=== PATIENT | male | born 1980 | race Caucasian/White ===

== ENCOUNTER 2021-05-12 14:54 | Emergency (ER) | payer OTHER, SELFPAY ==
[2021-05-12] MEDS ORDERED: ONDANSETRON 4 MG (ODT) TAB ONE (16:13)
[2021-05-12] MEDS ORDERED: BENZONATATE 100 MG CAP PO ONE (16:13)
--- NOTE | 2021-05-12 18:14 | EDPHYS ---
Physician Documentation [facility] Name: Bishop Velasquez Age: 40 yrs Sex: Male : 1980 Arrival Date: 05/12/2021 Time: 14:57 Bed 23 Private MD: ED Physician Brian Lilly HPI: 05/12 15:45 This 40 yrs old Male presents to ER via Ambulatory with complaints of cp Abdominal Pain, Cough. 15:45 The patient presents with diarrhea with episode today and 3 episodes yesterday. Patient cp denies abdominal pain at this time. 15:45 The patient or guardian reports cough, that is intermittent, with productive sputum, cp that is green, reports nausea with cough. Onset: The symptoms/episode began/occurred 2 day(s) ago. Associated signs and symptoms: Pertinent positives: diarrhea, sore throat, Pertinent negatives: chest pain, fever, vomiting. Historical: - Allergies: 15:24 No Known Allergies; tw2 - Home Meds: 15:24 None [Active]; tw2 - PMHx: 15:24 Bipolar disorder; tw2 - PSHx: 15:24 None; tw2 - Immunization history:: Client reports having NOT received the Covid vaccine. - Social history:: Smoking status: Patient reports the use of cigarette tobacco products, smokes one pack cigarettes per day. Patient uses street drugs, marijuana, "occasionally". ROS: 15:50 Constitutional: Negative for body aches, chills, fever, poor PO intake. cp 15:50 Eyes: Negative for injury, pain, redness, and discharge. cp 15:50 ENT: Negative for ear pain, difficulty swallowing, difficulty handling secretions. 15:50 Cardiovascular: Negative for chest pain. 15:50 Respiratory: Positive for cough, Negative for shortness of breath, wheezing. 15:50 Abdomen/GI: Positive for diarrhea, Negative for abdominal pain, vomiting, constipation, black/tarry stool, rectal bleeding. 15:50 Skin: Negative for rash. 15:50 Neuro: Negative for altered mental status, headache. 15:50 All other systems are negative. Exam: 15:52 Constitutional: The patient appears in no acute distress, alert, awake, comfortable, cp non-toxic, well developed, well nourished. 15:52 Head/Face: Normocephalic, atraumatic. cp 15:52 Eyes: Periorbital structures: appear normal, Conjunctiva: normal, no exudate, no injection, Sclera: no appreciated abnormality, Lids and lashes: appear normal, bilaterally. 15:52 ENT: External ear(s): are unremarkable, Nose: is normal, Mouth: Lips: moist, Oral mucosa: pink and intact, moist, Posterior pharynx: Airway: no evidence of obstruction, patent, Tonsils: no enlargement, no exudate, Uvula: midline, erythema, is not appreciated, exudate, is not appreciated. 15:52 Neck: ROM/movement: is normal, is supple, without pain, no range of motions limitations, no meningismus. 15:52 Chest/axilla: Inspection: normal, Palpation: is normal, no crepitus, no tenderness. 15:52 Cardiovascular: Rate: normal, Rhythm: regular. 15:52 Respiratory: the patient does not display signs of respiratory distress, Respirations: normal, no use of accessory muscles, no retractions, labored breathing, is not present, Breath sounds: are clear throughout, no decreased breath sounds, no stridor, no wheezing. 15:52 Abdomen/GI: Inspection: abdomen appears normal, Palpation: abdomen is soft and non-tender, in all quadrants. Vital Signs: 15:21 BP 139 / 91; Pulse 77; Resp 17; Temp 97.4; Pulse Ox 99% on R/A; Weight 81.65 kg (R); tw2 Height 6 ft. 2 in. (187.96 cm); 15:51 Weight 81.65 kg; Height 6 ft. 2 in. (187.96 cm); Pain 0/10; jw6 15:52 BP 134 / 78; Pulse 72; Resp 18; Pulse Ox 100% on R/A; jw6 15:51 Body Mass Index 23.11 (81.65 kg, 187.96 cm) jw6 MDM: 15:38 Patient medically screened. cp 18:13 Antibiotic administration: Not indicated, the patient has a suspected viral illness. cp 18:13 Data reviewed: vital signs, nurses notes, lab test result(s), and as a result, I will cp discharge patient. Counseling: I had a detailed discussion with the patient and/or guardian regarding: the historical points, exam findings, and any diagnostic results supporting the discharge/admit diagnosis, lab results, to return to the emergency department if symptoms worsen or persist or if there are any questions or concerns that arise at home. 05/12 15:38 Order name: COVID-19 (Coronavirus) Document "Date of Onset" if Symptomatic cp 05/12 15:38 Order name: Influenza Screen (a \\T\\ B) cp 05/12 15:45 Order name: Strep cp 05/12 16:48 Order name: Group A Streptococcus Rapid Sc; Complete Time: 17:13 EDMS 05/12 17:13 Interpretation: Reviewed. cp 05/12 16:51 Order name: CORONAVIRUS EDMS 05/12 16:53 Order name: Influenza Screen (A EDMS 05/12 17:55 Order name: SARS-COV-2 RT PCR; Complete Time: 18:09 EDMS 05/12 18:26 Order name: Throat Culture EDMS Administered Medications: 15:49 Drug: Tessalon Perle (benzonatate) 200 mg Route: PO; jw6 15:49 Follow up: Response: No adverse reaction jw6 15:49 Drug: Zofran (Ondansetron) 4 mg Route: PO; jw6 15:49 Follow up: Response: No adverse reaction jw6 Disposition Summary: 05/12/21 18:14 Discharge Ordered Location: Home cp Problem: new cp Symptoms: have improved cp Condition: Stable cp Diagnosis - Acute upper respiratory infection, unspecified cp - Diarrhea, unspecified cp Followup: cp - With: Private Physician - When: 2 - 3 days - Reason: Worsening of condition Discharge Instructions: - Discharge Summary Sheet cp - Food Choices to Help Relieve Diarrhea, Adult cp - Diarrhea, Adult cp - Viral Respiratory Infection cp Forms: - Medication Reconciliation Form cp - Thank You Letter cp - Antibiotic Education cp - Prescription Opioid Use cp Prescriptions: - Tessalon Perles 100 mg Oral Capsule - take 2 capsule by ORAL route every 8 hours As needed; 30 capsule; Refills: 0, cp Product Selection Permitted Addendum: 05/16/2021 13:53 Co-signature as Attending Physician, Brian Lilly MD I agree with the assessment and r n plan of care. Attestation: The patient's history, exam findings, diagnostics, and a summary of any interventions or procedures was reviewed in detail with Osman TORRES. Signatures: Dispatcher [employer] EDMS LillyBrian MD MD rn Page, Corey, PA PA cp Wise, Tara, RN RN tw2 Bruna Deluna 6
--- NOTE | 2021-05-12 18:14 | ER ---
Nurse's Notes [facility] Name: Bishop Velasquez Age: 40 yrs Sex: Male : 1980 Arrival Date: 05/12/2021 Time: 14:57 Bed 23 Private MD: Diagnosis: Acute upper respiratory infection, unspecified;Diarrhea, unspecified Presentation: 05/12 15:21 Chief complaint: Patient states: i have diarrhea the passed 2 days. i am coughing. i tw2 feel like i need to throw up but i dont. Chief complaint: Patient states: Monday night i started with the congestion. today i decided i better go to get checked out. Coronavirus screen: congestion, cough unrelated to allergies, diarrhea, nausea, Client presents with at least one sign or symptom that may indicate coronavirus-19. Standard/surgical mask placed on the client. Provider contacted for isolation considerations. Ebola Screen: Patient denies travel to an Ebola-affected area in the 21 days before illness onset. Initial Sepsis Screen: Does the patient meet any 2 criteria? No. Patient's initial sepsis screen is negative. Does the patient have a suspected source of infection? No. Patient's initial sepsis screen is negative. Risk Assessment: Do you want to hurt yourself or someone else? Patient reports no desire to harm self or others. Onset of symptoms was May 12, 2021. 15:21 Method Of Arrival: Ambulatory tw2 15:21 Acuity: MAGGIE 3 tw2 Triage Assessment: 15:24 General: Appears in no apparent distress. slender, well groomed, Behavior is calm, tw2 cooperative, appropriate for age. Pain: Complains of pain in abdomen. GI: Reports lower abdominal pain, upper abdominal pain, diarrhea, nausea. Historical: - Allergies: 15:24 No Known Allergies; tw2 - Home Meds: 15:24 None [Active]; tw2 - PMHx: 15:24 Bipolar disorder; tw2 - PSHx: 15:24 None; tw2 - Immunization history:: Client reports having NOT received the Covid vaccine. - Social history:: Smoking status: Patient reports the use of cigarette tobacco products, smokes one pack cigarettes per day. Patient uses street drugs, marijuana, "occasionally". Screenin:39 Abuse screen: Denies threats or abuse. Denies injuries from another. Nutritional jw6 screening: No deficits noted. Tuberculosis screening: No symptoms or risk factors identified. Fall Risk IV access (20 points). Assessment: 15:39 General: Appears in no apparent distress. Behavior is calm, appropriate for age. Pain: jw6 Denies pain. Neuro: No deficits noted. Cardiovascular: No deficits noted. Respiratory: Reports cough that is non-productive, persistent since last monday congestion since last monday. GI: Bowel sounds present X 4 quads. Abd is soft Reports diarrhea. : No signs and/or symptoms were reported regarding the genitourinary system. EENT: Reports nasal congestion nasal discharge. Derm: No deficits noted. Musculoskeletal: No deficits noted. Vital Signs: 15:21 BP 139 / 91; Pulse 77; Resp 17; Temp 97.4; Pulse Ox 99% on R/A; Weight 81.65 kg (R); tw2 Height 6 ft. 2 in. (187.96 cm); 15:51 Weight 81.65 kg; Height 6 ft. 2 in. (187.96 cm); Pain 0/10; jw6 15:52 BP 134 / 78; Pulse 72; Resp 18; Pulse Ox 100% on R/A; jw6 15:51 Body Mass Index 23.11 (81.65 kg, 187.96 cm) jw6 ED Course: 14:57 Patient arrived in ED. ds1 15:23 Triage completed. tw2 15:23 Arm band placed on. tw2 15:25 Osman Billingsley PA is PHCP. cp 15:25 Brian Lilly MD is Attending Physician. cp 15:29 Bruna Deluna is Primary Nurse. jw6 15:39 Patient has correct armband on for positive identification. Bed in low position. Call jw6 light in reach. Side rails up X 1. 15:39 No provider procedures requiring assistance completed. Initial lab(s) drawn, by in, jw6 sent to lab. Inserted saline lock: 20 gauge in left antecubital area, using aseptic technique. Blood collected. Administered Medications: 15:49 Drug: Tessalon Perle (benzonatate) 200 mg Route: PO; jw6 15:49 Follow up: Response: No adverse reaction jw6 15:49 Drug: Zofran (Ondansetron) 4 mg Route: PO; jw6 15:49 Follow up: Response: No adverse reaction jw6 Outcome: 18:14 Discharge ordered by MD. rivas 18:28 Patient left the ED. jw6 Signatures: Mona Akhtar ds1 Osman Billingsley PA PA cp Wise, Tara, RN RN tw2 Bruna Deluna jw6
[2021-05-12 18:35] VITALS: TEMP 97.4
[2021-05-12 18:37] VITALS: BP 134/78; O2SAT 100
== END 2021-05-12 18:28 | disposition home or self-care (01) ==
LOC: ER 14:54
DX: J06.9 Acute upper respiratory infection, unspecified (principal); R19.7 Diarrhea, unspecified; F17.210 Nicotine dependence, cigarettes, uncomplicated; Z20.822 Contact with and (suspected) exposure to COVID-19
CPT/HCPCS: 87070; 87081; 99283; U0003